=== PATIENT | female | born 1955 | race Caucasian/White ===

== ENCOUNTER 2022-07-25 17:38 | Emergency (ER) | payer MEDICARE ==
[~2022-07-25] VITALS: Ht 172.7 cm; Wt 109.1 kg
[~2022-07-25 17:38] MED LIST: BASAGLAR K100 UNIT/1 SQ; GLUCOPHAGE1000 MG PO; GLUCOTROL 5M5 MG/TAB PO; MINOCYCLIN100 MG/CAP PO; PRINIVIL5 MG PO; SPORANOX100 MG PO; SYNTHROID0.112 MG/T PO; ZOCOR 10MG10 MG PO
[2022-07-25 18:25] VITALS: TEMP 98.7
[2022-07-25 19:33] LABS: BASO % 0.5 % (0.0-2.0); EOS # 0.1 K/mm3 (0.0-0.7); EOS % 2.6 % (0.0-4.0); GRAN # 2.6 K/mm3 (1.4-6.5); GRAN % 66.8 % (42.2-75.2); LYMPH # 0.6 K/mm3 (1.2-3.4); LYMPH % 15.8 % (20.0-51.0); MEAN CELL VOLUME 87 fl (80.0-100.0); MEAN CORPUSCULAR HGB CONC 33 g/dl (33.0-37.0); MEAN PLATELET VOLUME 8.8 fl (7.4-10.4); MONO # 0.5 K/mm3 (0.1-0.6); PLATELET COUNT 138 K/mm3 (130-400); RED BLOOD COUNT 3.38 M/mm3 (4.10-5.30); REDCELL DISTRIBUTION WIDTH-CV 15.8 % (11.5-14.5)
[2022-07-25 19:35] LABS: HEMATOCRIT 29.5 % (37.0-47.0); HEMOGLOBIN 9.6 g/dl (12.5-16.0); MEAN CORPUSCULAR HEMOGLOBIN 28 pg (27-31)
[2022-07-25 19:52] LABS: ALBUMIN 3.4 gm/dL (3.4-4.8); BILIRUBIN,TOTAL 0.9 mg/dL (0.2-1.2); CALCIUM 9.2 mg/dL (8.4-10.2); CREATININE, serum 1.05 mg/dL (0.57-1.11); POTASSIUM 3.5 mmol/L (3.5-4.5); TOTAL PROTEIN 6.5 gm/dL (6.2-8.1)
[2022-07-25 19:57] LABS: TROPONIN-I 0.021 ng/mL (0.00-0.033)
[2022-07-25 21:42] VITALS: BP 120/58; PULSE 86
== END 2022-07-25 21:43 | disposition home or self-care (01) ==
LOC: COL.ER 17:38
PROVIDERS: Emergency Medicine
DX: R53.81 Other malaise (principal); R53.83 Other fatigue; D72.819 Decreased white blood cell count, unspecified